=== PATIENT | female | born 1985 ===

== ENCOUNTER 2020-05-05 12:56 | Emergency (ER) | payer MEDICAID, OTHER ==
[~2020-05-05] VITALS: Ht 157.5 cm; Wt 90.3 kg
--- NOTE | 2020-05-05 13:17 | NUR ---
PT CAME IN CO OF LEFT FLANK PAIN THAT COMES AND GOES SINCE LAST WEDNESDAY. PT DENIES ANY PTHER URINARY SYMPTOMS. PT IS RESTING IN [facility]. AWAITING PROVIDER
[2020-05-05 13:45] LABS: MICROSCOPIC AUTO
[2020-05-05 15:37] LABS: ALBUMIN 3.7 g/dL (3.4-5.0); ANION GAP 8 mmol/L (5-15); CHLORIDE 111 mmol/L (98-107); CREATININE 0.64 mg/dL (0.55-1.02)
[2020-05-05 15:40] VITALS: BP 106/68
--- NOTE | 2020-05-05 15:40 | NUR ---
PT RESTING IN [facility]. AWAITING RENAL LAB PANEL RESULTS
== END 2020-05-05 16:41 | disposition home or self-care (01) ==
LOC: ED 14:49
DX: S39.012A Strain of muscle, fascia and tendon of lower back, initial encounter (principal); R31.29 Other microscopic hematuria; X58.XXXA Exposure to other specified factors, initial encounter; Y93.89 Activity, other specified; Y92.89 Other specified places as the place of occurrence of the external cause; Y99.8 Other external cause status
CPT/HCPCS: 36415; 76770; 80069; 81001; 81025; 99284